=== PATIENT | female | born 1965 | race Caucasian/White ===

== ENCOUNTER 2017-07-15 16:57 | Emergency (ER) | payer MEDICAID ==
[~2017-07-15] VITALS: Ht 165.1 cm; Wt 99.0 kg
[2017-07-15] MEDS ORDERED: OMNIPAQUE 350 MG/ML, 100ML BOTTLE ONE (17:39)
[2017-07-15 17:59] LABS: BASOPHILS # (AUTO) 0.06 x10^3/uL (0-0.1); BASOPHILS % (AUTO) 1 % (0-1); EOSINOPHILS # (AUTO) 0.05 x10^3/uL (0-0.4); EOSINOPHILS % (AUTO) 1 % (1-7); LYMPHOCYTES # (AUTO) 1.54 x10^3/uL (1-3.4); LYMPHOCYTES % (AUTO) 32 % (22-44); MD NO; MEAN CORPUSCULAR HEMOGLOBIN 30.8 pg (27.0-34.8); MEAN CORPUSCULAR HGB CONC 34.3 g/dL (32.4-35.8); MEAN CORPUSCULAR VOLUME 89.7 fL (80-100); MEAN PLATELET VOLUME 8.3 fL (7.4-10.4); MONOCYTES # (AUTO) 0.45 x10^3/uL (0.2-0.8); MONOCYTES % (AUTO) 10 % (2-9); NEUTROPHILS # (AUTO) 2.65 x10^3/uL (1.8-6.8); NEUTROPHILS % (AUTO) 56 % (42-75); PLATELET COUNT 228 x10^3/uL (130-400); RED CELL DISTRIBUTION WIDTH 13.4 % (9.6-15.2)
[2017-07-15 18:09] LABS: ALBUMIN 3.6 g/dL (3.4-5.0); ANION GAP 5 mmol/L (5-15); CALCIUM 8.7 mg/dL (8.5-10.1); CHLORIDE 108 mmol/L (98-107); CREATININE 0.85 mg/dL (0.55-1.02)
[2017-07-15] MEDS ORDERED: MECLIZINE CHEWABLE 25 MG TAB PO ONE (18:30)
[2017-07-15] MEDS ORDERED: SODIUM CHLORIDE 0.9% 1,000ML IVBOLUS ONE (18:30)
[2017-07-15] MEDS ORDERED: SODIUM CHLORIDE FLUSH 10ML SYR IVF ONE (19:00)
[2017-07-15] MEDS ORDERED: MECLIZINE CHEWABLE 25 MG TAB ONE (19:08)
[2017-07-15] MEDS ORDERED: ACETAMINOPHEN 500 MG TABLET PO ONE (20:30)
[2017-07-15] MEDS ORDERED: ACETAMINOPHEN 500 MG TABLET ONE (20:58)
[2017-07-15] MEDS ORDERED: lisinopril PO (21:06)
[2017-07-15] MEDS ORDERED: RANI150C PO (21:06)
[2017-07-15] MEDS ORDERED: triamcinolone TP (21:06)
[2017-07-15] MEDS ORDERED: ASPI-515 PO (21:06)
[2017-07-15] MEDS ORDERED: SUMA100T4 PO (21:06)
[2017-07-15] MEDS ORDERED: BUPR-173 PO (21:06)
[2017-07-15] MEDS ORDERED: ammonium lactate TP (21:06)
[2017-07-15] MEDS ORDERED: CYCL5TAB PO (21:06)
[2017-07-15] MEDS ORDERED: GABA300C PO (21:06)
[2017-07-15] MEDS ORDERED: CARV3.1212 PO (21:06)
[2017-07-15] MEDS ORDERED: FLUO60TA PO (21:06)
[2017-07-15 21:11] VITALS: BP 145/85
== END 2017-07-15 21:14 | disposition home or self-care (01) ==
LOC: ED 21:08
DX: G44.219 Episodic tension-type headache, not intractable (principal); R42 Dizziness and giddiness; E78.5 Hyperlipidemia, unspecified; I10 Essential (primary) hypertension; K21.9 Gastro-esophageal reflux disease without esophagitis
CPT/HCPCS: 36415; 70450; 70496; 80048; 82040; 85025; 93005; 96360; 99285; J7030; Q9967